=== PATIENT | male | born 1935 | race Caucasian/White ===

== ENCOUNTER 2020-02-13 11:17 | Observation (INO) ==
[2020-02-13] MEDS ORDERED: Isovue-370 500 ML BOTTLE IVP ONE (11:47)
[2020-02-13 14:42] LABS: Hematocrit 46.9 % (37.5-50.1); Hemoglobin 15.4 g/dL (12.9-16.9); Mean Corpuscular HGB Conc 32.8 g/dL (31.6-35.5); Mean Corpuscular Hemoglobin 30.6 pg (28.0-33.3); Mean Corpuscular Volume 93.2 fL (83.0-100.0); Platelet Count 191 K/mcL (140-400); Red Blood Count 5.03 M/mcL (4.19-5.50); White Blood Count 5.9 K/mcL (4.3-11.1)
[2020-02-13 14:57] LABS: Alanine Aminotransferase 16 Units/L (7-52); Albumin/Globulin Ratio 1.5 (1.1-2.2); Alkaline Phosphatase 58 Units/L (34-104); Aspartate Amino Transferase 22 Units/L (13-39); BUN/Creatinine Ratio 13 (6-26); Bilirubin,Direct 0.6 mg/dL (0.0-0.2); Bilirubin,Indirect 2.8 mg/dL (0.0-1.0); Bilirubin,Total 3.4 mg/dL (0.3-1.0); Blood Urea Nitrogen 13 mg/dL (8-23); Calcium 9.3 mg/dL (8.6-10.3); Carbon Dioxide 27 mEq/L (23-29); Chloride 104 mEq/L (98-107); Globulin 2.6 g/dL (2.4-3.5); Glucose 91 mg/dL (70-105); Lipase 21 Units/L (11-82); Osmolality,Calculated 288 (280-300); Potassium 4.4 mEq/L (3.5-5.1); Sodium 139 mEq/L (136-145); Total Protein 6.6 g/dL (6.4-8.9); Troponin I 0.07 ng/mL (< 0.04); eGFR For African Americans > 60 (> 60); eGFR For Non-African Americans > 60 (> 60)
[2020-02-13] MEDS ORDERED: Aspirin 81 MG TAB.CHEW PO ONE (15:15)
[2020-02-13] MEDS ORDERED: *HR* Promethazine 25 MG/ML VIAL IVP PRN (15:22)
[2020-02-13] MEDS ORDERED: Naloxone 0.4 MG/ML INJ IVP PRN (15:22)
[2020-02-13] MEDS ORDERED: Nitroglycerin 0.4 MG TAB.SUBL SL PRN (15:38)
[2020-02-13] MEDS ORDERED: *HR* Heparin 5,000 UNIT/ML VIAL IVP ONE (16:43)
[2020-02-13] MEDS ORDERED: *HR* Heparin 5,000 UNIT/ML VIAL IVP PRN ×2 (16:43)
[2020-02-13] MEDS ORDERED: Heparin 25,000 UNIT/250 ML D5W 25,000 UNIT/250 ML IV.SOLN IVC SCH (16:45)
[2020-02-13] MEDS: *HR* Heparin 5,000 UNIT/ML VIAL SQ SCH (17:58)
[2020-02-13] MEDS ORDERED: *HR* Heparin 5,000 UNIT/ML VIAL SQ SCH (18:00)
[2020-02-13 18:50] LABS: Hematocrit 47.5 % (37.5-50.1); Hemoglobin 15.3 g/dL (12.9-16.9); Mean Corpuscular HGB Conc 32.2 g/dL (31.6-35.5); Mean Corpuscular Hemoglobin 29.7 pg (28.0-33.3); Mean Corpuscular Volume 92.1 fL (83.0-100.0); Platelet Count 199 K/mcL (140-400); Red Blood Count 5.16 M/mcL (4.19-5.50); White Blood Count 6.3 K/mcL (4.3-11.1)
[2020-02-13] MEDS: Valsartan 80 MG TABLET PO SCH (20:02)
[2020-02-13] MEDS ORDERED: Perflutren Lipid Microsphere 1.3 ML in 0.9 % Sodium Chloride 8.7 ML IVP ONE (21:35)
[2020-02-13] MEDS ORDERED: Rivastigmine Patch 9.5 MG PATCH.TD24 TD SCH (22:00)
[2020-02-13] MEDS: Rivastigmine Patch 9.5 MG PATCH.TD24 TD SCH (23:48)
[2020-02-14 01:43] LABS: Basophils # 0.1 K/mcL (0.0-0.2); Basophils % 0.8 %; Eosinophils # 0.1 K/mcL (0.0-0.6); Eosinophils % 2.1 %; Hematocrit 46.6 % (37.5-50.1); Hemoglobin 14.9 g/dL (12.9-16.9); Immature Granulocytes % 0.2 % (0-4); Lymphocytes # 1.4 K/mcL (0.6-4.6); Lymphocytes % 22.8 %; Mean Corpuscular Hemoglobin 29.6 pg (28.0-33.3); Mean Corpuscular Volume 92.6 fL (83.0-100.0); Mean Platelet Volume 10.4 fL (9.4-12.4); Monocytes # 0.7 K/mcL (0.0-1.3); Monocytes % 11.5 %; Neutrophils # 3.9 K/mcL (1.6-8.9); Platelet Count 208 K/mcL (140-400); Red Blood Count 5.03 M/mcL (4.19-5.50); Segmented Neutrophils % 62.6 %; White Blood Count 6.2 K/mcL (4.3-11.1)
[2020-02-14 02:05] LABS: BUN/Creatinine Ratio 12 (6-26); Blood Urea Nitrogen 13 mg/dL (8-23); Carbon Dioxide 26 mEq/L (23-29); Chloride 105 mEq/L (98-107); Glucose 82 mg/dL (70-105); Magnesium 2.2 mg/dL (1.6-2.6); Osmolality,Calculated 287 (280-300); Phosphorous 2.9 mg/dL (2.7-4.5); Potassium 3.5 mEq/L (3.5-5.1); Sodium 139 mEq/L (136-145); eGFR For African Americans > 60 (> 60); eGFR For Non-African Americans > 60 (> 60)
[2020-02-14] MEDS: *HR* Heparin 5,000 UNIT/ML VIAL SQ SCH ×2 (06:16→17:37)
[2020-02-14] MEDS: Aspirin Enteric Coated 81 MG Tablet PO SCH (08:09)
[2020-02-14] MEDS: Metoprolol XL (24 HR) Succ 50 MG TAB.ER.24H PO SCH (08:10)
[2020-02-14] MEDS: Valsartan 80 MG TABLET PO SCH (08:10)
[2020-02-14 14:15] LABS: Hepatitis B Surface Antigen Nonreactive (Nonreactive)
[2020-02-14 14:43] LABS: Hepatitis C Virus Antibody Nonreactive (Nonreactive)
[2020-02-14 14:44] LABS: Hepatitis B Core IgM Nonreactive (Nonreactive)
[2020-02-14 14:45] LABS: Hepatitis A Antibody IgM Nonreactive (Nonreactive)
[2020-02-14] MEDS ORDERED: Lidocaine -MPF 2% 2 ML VIAL ONE (14:57)
[2020-02-14] MEDS ORDERED: *HR* Propofol 200 MG/20 ML VIAL IVP ONE (14:57)
[2020-02-14] MEDS ORDERED: 0.9 % Sodium Chloride 500 ML IVC SCH (15:45)
[2020-02-14] MEDS: Rivastigmine Patch 9.5 MG PATCH.TD24 TD SCH (21:23)
[2020-02-15 03:59] LABS: Alanine Aminotransferase 13 Units/L (7-52); Albumin 3.9 g/dL (3.5-5.7); Albumin/Globulin Ratio 1.6 (1.1-2.2); Alkaline Phosphatase 59 Units/L (34-104); Aspartate Amino Transferase 20 Units/L (13-39); BUN/Creatinine Ratio 17 (6-26); Bilirubin,Total 2.9 mg/dL (0.3-1.0); Blood Urea Nitrogen 18 mg/dL (8-23); Calcium 8.8 mg/dL (8.6-10.3); Carbon Dioxide 24 mEq/L (23-29); Chloride 105 mEq/L (98-107); Globulin 2.5 g/dL (2.4-3.5); Glucose 88 mg/dL (70-105); Osmolality,Calculated 289 (280-300); Potassium 3.7 mEq/L (3.5-5.1); Sodium 139 mEq/L (136-145); Total Protein 6.4 g/dL (6.4-8.9); eGFR For African Americans > 60 (> 60); eGFR For Non-African Americans > 60 (> 60)
[2020-02-15] MEDS: *HR* Heparin 5,000 UNIT/ML VIAL SQ SCH (05:50)
[2020-02-15] MEDS: Aspirin Enteric Coated 81 MG Tablet PO SCH (09:06)
[2020-02-15] MEDS: Metoprolol XL (24 HR) Succ 50 MG TAB.ER.24H PO SCH (09:06)
[2020-02-15 10:49] VITALS: BP 141/76
== END 2020-02-15 11:08 | disposition home or self-care (01) ==
LOC: 2ANU 11:17 → EMEROOARM 11:17 → SUATTDRO 16:21 → 2ANU 16:54
PROVIDERS: ADMIT Internal Medicine; ATTEND Internal Medicine
PROC: ENDOEBX (2020-02-14 13:45)

== ENCOUNTER 2021-05-03 16:16 | Inpatient (IN) ==
[2021-05-03 20:27] LABS: Basophils % 1.1 %; Eosinophils # 0.1 K/mcL (0.0-0.6); Eosinophils % 2.8 %; Hematocrit 43.3 % (37.5-50.1); Hemoglobin 13.7 g/dL (12.9-16.9); Immature Granulocytes % 0.6 % (0-4); Lymphocytes # 1.2 K/mcL (0.6-4.6); Lymphocytes % 32.7 %; Mean Corpuscular HGB Conc 31.6 g/dL (31.6-35.5); Mean Corpuscular Hemoglobin 28.5 pg (28.0-33.3); Mean Corpuscular Volume 90.2 fL (83.0-100.0); Mean Platelet Volume 9.3 fL (9.4-12.4); Monocytes # 0.4 K/mcL (0.0-1.3); Neutrophils # 1.9 K/mcL (1.6-8.9); Platelet Count 207 K/mcL (140-400); Red Cell Distribution Width 14.5 % (11.5-14.5); Segmented Neutrophils % 52.8 %; White Blood Count 3.6 K/mcL (4.3-11.1)
[2021-05-03] MEDS ORDERED: Isovue-370 500 ML BOTTLE IVP ONE (20:55)
[2021-05-03] MEDS ORDERED: Aspirin 81 MG TAB.CHEW PO ONE (21:00)
[2021-05-03 21:38] LABS: Alanine Aminotransferase 5 Units/L (7-52); Albumin 3.5 g/dL (3.5-5.7); Albumin/Globulin Ratio 1.1 (1.1-2.2); Alkaline Phosphatase 72 Units/L (34-104); Aspartate Amino Transferase 15 Units/L (13-39); BUN/Creatinine Ratio 10 (6-26); Bilirubin,Total 2.6 mg/dL (0.3-1.0); Blood Urea Nitrogen 10 mg/dL (8-23); Calcium 8.8 mg/dL (8.6-10.3); Carbon Dioxide 20 mEq/L (23-29); Chloride 107 mEq/L (98-107); Globulin 3.1 g/dL (2.4-3.5); Glucose 87 mg/dL (70-105); Osmolality,Calculated 286 (280-300); Potassium 3.8 mEq/L (3.5-5.1); Sodium 139 mEq/L (136-145); Total Protein 6.6 g/dL (6.4-8.9); eGFR For African Americans > 60 (> 60); eGFR For Non-African Americans > 60 (> 60)
[2021-05-03 22:26] LABS: Troponin I 0.05 ng/mL (< 0.04)
[2021-05-03 22:38] LABS: Bilirubin,Urine Negative (Negative); Blood,Urine Small (Negative); Clarity,Urine Clear (Clear); Color,Urine Light-Orange (Yellow); Glucose,Urine (UA) Normal (Normal); Ketones,Urine Negative (Negative); Leukocyte Esterase,Urine Trace (Negative); Mucus,Urine Few per lpf (None-Few); Nitrite,Urine Negative (Negative); Protein,Urine Trace mg/dL (Neg-Trace); Specific Gravity,Urine 1.022 (1.010-1.025)
[2021-05-04] MEDS ORDERED: Acetaminophen 325 MG TABLET PO PRN (01:04)
[2021-05-04] MEDS ORDERED: *HR* Promethazine 25 MG/ML VIAL IM PRN (01:04)
[2021-05-04] MEDS ORDERED: Ondansetron 4 MG/2 ML VIAL IVP PRN (01:04)
[2021-05-04] MEDS ORDERED: Melatonin 3 MG TABLET PO PRN (01:04)
[2021-05-04] MEDS ORDERED: Naloxone 0.4 MG/ML INJ IVP PRN (01:04)
[2021-05-04] MEDS: Furosemide 40 MG/4 ML VIAL IVP SCH ×2 (06:22→09:34)
[2021-05-04] MEDS: *HR* Enoxaparin 40 MG/0.4 ML SYRINGE SQ SCH (06:23)
[2021-05-04 06:46] LABS: Basophils % 0.9 %; Eosinophils # 0.1 K/mcL (0.0-0.6); Eosinophils % 1.7 %; Hematocrit 44.7 % (37.5-50.1); Hemoglobin 14.3 g/dL (12.9-16.9); Immature Granulocytes % 0.2 % (0-4); Lymphocytes # 1.1 K/mcL (0.6-4.6); Lymphocytes % 23.5 %; Mean Corpuscular Hemoglobin 28.9 pg (28.0-33.3); Mean Corpuscular Volume 90.5 fL (83.0-100.0); Mean Platelet Volume 9.6 fL (9.4-12.4); Monocytes # 0.4 K/mcL (0.0-1.3); Monocytes % 9.5 %; Platelet Count 208 K/mcL (140-400); Red Blood Count 4.94 M/mcL (4.19-5.50); Red Cell Distribution Width 14.5 % (11.5-14.5); Segmented Neutrophils % 64.2 %; White Blood Count 4.6 K/mcL (4.3-11.1)
[2021-05-04 06:57] LABS: INR 1.4; Prothrombin Time 16.1 Seconds (9.4-12.1)
[2021-05-04 07:07] LABS: BUN/Creatinine Ratio 10 (6-26); Blood Urea Nitrogen 10 mg/dL (8-23); Carbon Dioxide 25 mEq/L (23-29); Chloride 105 mEq/L (98-107); Chol/HDL Ratio 5.4 (0-4.9); Cholesterol 185 mg/dL (< 200); Glucose 92 mg/dL (70-105); HDL Cholesterol 34 mg/dL (40-59); LDL Cholesterol,Calculated 131 mg/dL (< 100); Magnesium 2.1 mg/dL (1.6-2.6); Osmolality,Calculated 287 (280-300); Potassium 3.8 mEq/L (3.5-5.1); Sodium 139 mEq/L (136-145); Triglycerides 101 mg/dL (< 150); eGFR For African Americans > 60 (> 60); eGFR For Non-African Americans > 60 (> 60)
[2021-05-04 08:38] LABS: C-Reactive Protein < 5 mg/L (Less than 10)
[2021-05-04] MEDS: Metoprolol XL (24 HR) Succ 50 MG TAB.ER.24H PO SCH (09:41)
[2021-05-04] MEDS: Aspirin Enteric Coated 81 MG Tablet PO SCH (09:41)
[2021-05-04] MEDS: Rivastigmine Patch 9.5 MG PATCH.TD24 TD SCH (10:37)
[2021-05-04] MEDS: QUEtiapine Fumarate 100 MG TABLET PO SCH (19:46)
[2021-05-04] MEDS ORDERED: QUEtiapine Fumarate 25 MG TABLET PO SCH (21:00)
[2021-05-05 04:29] LABS: Hematocrit 45.1 % (37.5-50.1); Hemoglobin 14.7 g/dL (12.9-16.9); Mean Corpuscular HGB Conc 32.6 g/dL (31.6-35.5); Mean Corpuscular Hemoglobin 29.1 pg (28.0-33.3); Mean Corpuscular Volume 89.3 fL (83.0-100.0); Mean Platelet Volume 9.7 fL (9.4-12.4); Platelet Count 206 K/mcL (140-400); Red Blood Count 5.05 M/mcL (4.19-5.50); Red Cell Distribution Width 14.4 % (11.5-14.5); White Blood Count 5.8 K/mcL (4.3-11.1)
[2021-05-05 04:49] LABS: BUN/Creatinine Ratio 15 (6-26); Blood Urea Nitrogen 18 mg/dL (8-23); Calcium 9.2 mg/dL (8.6-10.3); Carbon Dioxide 27 mEq/L (23-29); Chloride 101 mEq/L (98-107); Glucose 98 mg/dL (70-105); Osmolality,Calculated 292 (280-300); Potassium 3.4 mEq/L (3.5-5.1); Sodium 140 mEq/L (136-145); eGFR For African Americans > 60 (> 60); eGFR For Non-African Americans 57 (> 60)
[2021-05-05] MEDS: *HR* Enoxaparin 40 MG/0.4 ML SYRINGE SQ SCH (05:10)
[2021-05-05] MEDS: QUEtiapine Fumarate 25 MG TABLET PO SCH (10:19)
[2021-05-05] MEDS: Aspirin Enteric Coated 81 MG Tablet PO SCH (10:20)
[2021-05-05] MEDS: Cyanocobalamin (B-12) 1,000 MCG TABLET PO SCH (10:20)
[2021-05-05] MEDS: Furosemide 40 MG TABLET PO SCH (10:20)
[2021-05-05] MEDS: Rivastigmine Patch 9.5 MG PATCH.TD24 TD SCH (10:20)
[2021-05-05] MEDS: Metoprolol XL (24 HR) Succ 50 MG TAB.ER.24H PO SCH (10:20)
[2021-05-05] MEDS ORDERED: Potassium Chloride Elixir 20 MEQ/15 ML UDC PO ONE (13:01)
[2021-05-06] MEDS: QUEtiapine Fumarate 100 MG TABLET PO SCH ×3 (02:34→20:10)
[2021-05-06] MEDS: *HR* Enoxaparin 40 MG/0.4 ML SYRINGE SQ SCH (06:11)
[2021-05-06] MEDS: Rivastigmine Patch 9.5 MG PATCH.TD24 TD SCH (08:19)
[2021-05-06] MEDS: Aspirin Enteric Coated 81 MG Tablet PO SCH (08:20)
[2021-05-06] MEDS: QUEtiapine Fumarate 25 MG TABLET PO SCH (08:20)
[2021-05-06] MEDS: Metoprolol XL (24 HR) Succ 50 MG TAB.ER.24H PO SCH (08:21)
[2021-05-06] MEDS: Furosemide 40 MG TABLET PO SCH (08:21)
[2021-05-06] MEDS: Cyanocobalamin (B-12) 1,000 MCG TABLET PO SCH (08:21)
[2021-05-07] MEDS: *HR* Enoxaparin 40 MG/0.4 ML SYRINGE SQ SCH (05:27)
[2021-05-07] MEDS: Metoprolol XL (24 HR) Succ 50 MG TAB.ER.24H PO SCH (10:24)
[2021-05-07] MEDS: Aspirin Enteric Coated 81 MG Tablet PO SCH (10:24)
[2021-05-07] MEDS: QUEtiapine Fumarate 25 MG TABLET PO SCH (10:24)
[2021-05-07] MEDS: Rivastigmine Patch 9.5 MG PATCH.TD24 TD SCH (10:25)
[2021-05-07] MEDS: Furosemide 40 MG TABLET PO SCH (10:25)
[2021-05-07] MEDS: Cyanocobalamin (B-12) 1,000 MCG TABLET PO SCH (10:26)
[2021-05-07] MEDS: QUEtiapine Fumarate 100 MG TABLET PO SCH (20:51)
[2021-05-08 01:37] LABS: BUN/Creatinine Ratio 17 (6-26); Blood Urea Nitrogen 19 mg/dL (8-23); Calcium 9.5 mg/dL (8.6-10.3); Carbon Dioxide 29 mEq/L (23-29); Chloride 99 mEq/L (98-107); Glucose 110 mg/dL (70-105); Osmolality,Calculated 289 (280-300); Potassium 3.2 mEq/L (3.5-5.1); Sodium 138 mEq/L (136-145); eGFR For African Americans > 60 (> 60); eGFR For Non-African Americans > 60 (> 60)
[2021-05-08] MEDS: *HR* Enoxaparin 40 MG/0.4 ML SYRINGE SQ SCH (06:49)
[2021-05-08] MEDS ORDERED: Potassium Chloride Elixir 20 MEQ/15 ML UDC PO ONE (07:11)
[2021-05-08] MEDS: Furosemide 40 MG TABLET PO SCH (09:11)
[2021-05-08] MEDS: QUEtiapine Fumarate 25 MG TABLET PO SCH (09:11)
[2021-05-08] MEDS: Aspirin Enteric Coated 81 MG Tablet PO SCH (09:11)
[2021-05-08] MEDS: Metoprolol XL (24 HR) Succ 50 MG TAB.ER.24H PO SCH (09:11)
[2021-05-08] MEDS: Rivastigmine Patch 9.5 MG PATCH.TD24 TD SCH (09:11)
[2021-05-08] MEDS: Cyanocobalamin (B-12) 1,000 MCG TABLET PO SCH (09:12)
[2021-05-08] MEDS: QUEtiapine Fumarate 100 MG TABLET PO SCH (22:05)
[2021-05-09 01:20] LABS: BUN/Creatinine Ratio 16 (6-26); Blood Urea Nitrogen 20 mg/dL (8-23); Carbon Dioxide 29 mEq/L (23-29); Chloride 101 mEq/L (98-107); Glucose 107 mg/dL (70-105); Magnesium 2.1 mg/dL (1.6-2.6); Osmolality,Calculated 291 (280-300); Potassium 3.3 mEq/L (3.5-5.1); Sodium 139 mEq/L (136-145); eGFR For African Americans > 60 (> 60); eGFR For Non-African Americans 56 (> 60)
[2021-05-09] MEDS: *HR* Enoxaparin 40 MG/0.4 ML SYRINGE SQ SCH (05:49)
[2021-05-09] MEDS ORDERED: Potassium Chloride Elixir 20 MEQ/15 ML UDC PO ONE (07:08)
[2021-05-09] MEDS: Cyanocobalamin (B-12) 1,000 MCG TABLET PO SCH (08:08)
[2021-05-09] MEDS: Rivastigmine Patch 9.5 MG PATCH.TD24 TD SCH (08:08)
[2021-05-09] MEDS: QUEtiapine Fumarate 25 MG TABLET PO SCH (08:09)
[2021-05-09] MEDS: Aspirin Enteric Coated 81 MG Tablet PO SCH (08:09)
[2021-05-09] MEDS: Metoprolol XL (24 HR) Succ 50 MG TAB.ER.24H PO SCH (08:11)
[2021-05-09] MEDS: Furosemide 40 MG TABLET PO SCH (08:11)
[2021-05-09] MEDS: QUEtiapine Fumarate 100 MG TABLET PO SCH (21:26)
[2021-05-10] MEDS: *HR* Enoxaparin 40 MG/0.4 ML SYRINGE SQ SCH (05:48)
[2021-05-10 06:47] LABS: BUN/Creatinine Ratio 17 (6-26); Blood Urea Nitrogen 22 mg/dL (8-23); Calcium 8.9 mg/dL (8.6-10.3); Carbon Dioxide 30 mEq/L (23-29); Chloride 101 mEq/L (98-107); Glucose 106 mg/dL (70-105); Osmolality,Calculated 288 (280-300); Potassium 3.4 mEq/L (3.5-5.1); Sodium 137 mEq/L (136-145); eGFR For African Americans > 60 (> 60); eGFR For Non-African Americans 53 (> 60)
[2021-05-10] MEDS ORDERED: Potassium Chloride Elixir 20 MEQ/15 ML UDC PO ONE (07:51)
[2021-05-10] MEDS: QUEtiapine Fumarate 25 MG TABLET PO SCH (10:33)
[2021-05-10] MEDS: Cyanocobalamin (B-12) 1,000 MCG TABLET PO SCH (10:34)
[2021-05-10] MEDS: Furosemide 40 MG TABLET PO SCH (10:34)
[2021-05-10] MEDS: Metoprolol XL (24 HR) Succ 50 MG TAB.ER.24H PO SCH (10:34)
[2021-05-10] MEDS: Aspirin Enteric Coated 81 MG Tablet PO SCH (10:35)
[2021-05-10] MEDS: Rivastigmine Patch 9.5 MG PATCH.TD24 TD SCH (10:35)
[2021-05-10] MEDS: QUEtiapine Fumarate 100 MG TABLET PO SCH (20:15)
[2021-05-11] MEDS: *HR* Enoxaparin 40 MG/0.4 ML SYRINGE SQ SCH (05:43)
[2021-05-11] MEDS: Rivastigmine Patch 9.5 MG PATCH.TD24 TD SCH (10:00)
[2021-05-11] MEDS: Aspirin Enteric Coated 81 MG Tablet PO SCH (10:01)
[2021-05-11] MEDS: Metoprolol XL (24 HR) Succ 50 MG TAB.ER.24H PO SCH (10:01)
[2021-05-11] MEDS: Furosemide 40 MG TABLET PO SCH (10:01)
[2021-05-11] MEDS: QUEtiapine Fumarate 25 MG TABLET PO SCH (10:01)
[2021-05-11] MEDS: Cyanocobalamin (B-12) 1,000 MCG TABLET PO SCH (10:03)
[2021-05-11] MEDS: QUEtiapine Fumarate 100 MG TABLET PO SCH (20:40)
[2021-05-12 05:18] LABS: Basophils # 0.1 K/mcL (0.0-0.2); Basophils % 1.4 %; Eosinophils # 0.2 K/mcL (0.0-0.6); Eosinophils % 3.4 %; Hematocrit 48.4 % (37.5-50.1); Hemoglobin 15.9 g/dL (12.9-16.9); Immature Granulocytes % 0.5 % (0-4); Lymphocytes # 1.6 K/mcL (0.6-4.6); Lymphocytes % 35.5 %; Mean Corpuscular HGB Conc 32.9 g/dL (31.6-35.5); Mean Corpuscular Hemoglobin 29.6 pg (28.0-33.3); Mean Corpuscular Volume 90.1 fL (83.0-100.0); Mean Platelet Volume 9.7 fL (9.4-12.4); Monocytes # 0.6 K/mcL (0.0-1.3); Monocytes % 13.2 %; Platelet Count 195 K/mcL (140-400); Red Blood Count 5.37 M/mcL (4.19-5.50); Red Cell Distribution Width 14.1 % (11.5-14.5); White Blood Count 4.4 K/mcL (4.3-11.1)
[2021-05-12] MEDS: *HR* Enoxaparin 40 MG/0.4 ML SYRINGE SQ SCH (05:33)
[2021-05-12 05:42] LABS: BUN/Creatinine Ratio 15 (6-26); Blood Urea Nitrogen 20 mg/dL (8-23); Calcium 9.2 mg/dL (8.6-10.3); Carbon Dioxide 29 mEq/L (23-29); Chloride 101 mEq/L (98-107); Glucose 98 mg/dL (70-105); Osmolality,Calculated 287 (280-300); Potassium 3.6 mEq/L (3.5-5.1); Sodium 137 mEq/L (136-145); eGFR For African Americans > 60 (> 60); eGFR For Non-African Americans 52 (> 60)
[2021-05-12] MEDS: QUEtiapine Fumarate 25 MG TABLET PO SCH (09:19)
[2021-05-12] MEDS: Rivastigmine Patch 9.5 MG PATCH.TD24 TD SCH (09:19)
[2021-05-12] MEDS: Aspirin Enteric Coated 81 MG Tablet PO SCH (09:19)
[2021-05-12] MEDS: Furosemide 40 MG TABLET PO SCH (09:20)
[2021-05-12] MEDS: Cyanocobalamin (B-12) 1,000 MCG TABLET PO SCH (09:20)
[2021-05-12] MEDS: Metoprolol XL (24 HR) Succ 50 MG TAB.ER.24H PO SCH (09:20)
[2021-05-12 11:47] VITALS: BP 100/65; PULSE 62; TEMP 97.3; O2SAT 93
== END 2021-05-12 15:33 | disposition home health service (06) | DRG 282 ==
LOC: CDU 16:16 → EMEROOARM 16:16 → SUATTDRO 05-04 00:28 → 3ANU 05-04 02:33 → SUATTDRO 05-05 19:26
PROVIDERS: ADMIT Internal Medicine; ATTEND General Practice